=== PATIENT | female | born 1995 | race Caucasian/White ===

== ENCOUNTER 2025-08-09 06:51 | Day surgery (SDC) | payer OTHER, SELFPAY | END 2025-08-09 09:10 | disposition home or self-care (01) | LOC: GI 06:51 | PROVIDERS: ATTENDING PHYSICIAN Internal Medicine | DX: K62.5 Hemorrhage of anus and rectum (principal); K64.8 Other hemorrhoids; D12.5 Benign neoplasm of sigmoid colon | CPT/HCPCS: 45385; 45380; 88305 ==